=== PATIENT | female | born 1965 | race Two or more races ===

== ENCOUNTER → 2017-09-29 | Outpatient (CLI) | payer OTHER ==
[~2017-09-29] MED LIST: KETO10TA2 PO; ORPH100T PO; PROMETRIUM200 MG PO
== END | disposition home or self-care (01) ==
LOC: RAD 501 12:40
DX: M25.551 Pain in right hip (principal)

== ENCOUNTER → 2018-12-05 | Emergency (ER) | payer OTHER ==
[~2018-12-05] VITALS: Ht 154.9 cm; Wt 59.9 kg
== END | disposition home or self-care (01) ==
LOC: ER 18:59
DX: B34.9 Viral infection, unspecified (principal); E86.0 Dehydration; K29.70 Gastritis, unspecified, without bleeding

== ENCOUNTER 2019-03-03 13:40 | Outpatient (CLI) | payer OTHER | END 2019-03-03 13:43 | disposition home or self-care (01) | LOC: MRI 13:40 | DX: M46.47 Discitis, unspecified, lumbosacral region (principal) | CPT/HCPCS: 72148 ==

== ENCOUNTER → 2019-03-18 | Outpatient (CLI) | payer OTHER | END | disposition home or self-care (01) | LOC: TOM 13:30 | DX: M12.89 Other specific arthropathies, not elsewhere classified, multiple sites (principal); M54.31 Sciatica, right side ==

== ENCOUNTER 2022-02-22 11:45 | Outpatient (CLI) | payer OTHER | END 2022-02-22 12:30 | disposition home or self-care (01) | LOC: ASH CLINIC 11:45 | PROVIDERS: ATTEND General Practice | DX: U07.1 COVID-19 (principal) ==

== ENCOUNTER 2023-07-23 09:52 | Outpatient (CLI) | payer OTHER | END 2023-07-23 09:56 | disposition home or self-care (01) | LOC: MAMO-SONO 09:52 | PROVIDERS: ATTEND Internal Medicine Cardiovascular Disease | DX: Z12.31 Encounter for screening mammogram for malignant neoplasm of breast (principal); N60.02 Solitary cyst of left breast ==